=== PATIENT | female | born 1970 | race Caucasian/White ===

== ENCOUNTER 2020-02-20 12:12 | Observation (INO) ==
[2020-02-20] MEDS ORDERED: Ondansetron 4 MG/2 ML VIAL IVP PRN (19:05)
[2020-02-20] MEDS ORDERED: 0.9 % Sodium Chloride 1,000 ML IVC SCH (19:15)
[2020-02-20 19:55] LABS: Basophils % 0.3 %; Eosinophils # 0.1 K/mcL (0.0-0.6); Eosinophils % 0.8 %; Hemoglobin 13.1 g/dL (11.5-15.4); Immature Granulocytes % 0.4 % (0-4); Lymphocytes # 1.8 K/mcL (0.6-4.6); Lymphocytes % 19.2 %; Mean Corpuscular HGB Conc 32.8 g/dL (31.6-35.5); Mean Corpuscular Hemoglobin 30.9 pg (28.0-33.3); Mean Corpuscular Volume 94.3 fL (83.0-100.0); Mean Platelet Volume 9.5 fL (9.4-12.4); Monocytes # 0.4 K/mcL (0.0-1.3); Monocytes % 3.7 %; Neutrophils # 7.2 K/mcL (1.6-8.9); Platelet Count 307 K/mcL (140-400); Red Blood Count 4.24 M/mcL (3.82-4.97); Red Cell Distribution Width 13.7 % (11.5-14.5); Segmented Neutrophils % 75.6 %; White Blood Count 9.6 K/mcL (4.3-11.1)
[2020-02-20 20:09] LABS: Alanine Aminotransferase 17 Units/L (7-52); Albumin 3.9 g/dL (3.5-5.7); Albumin/Globulin Ratio 1.9 (1.1-2.2); Alkaline Phosphatase 45 Units/L (34-104); Aspartate Amino Transferase 22 Units/L (13-39); BUN/Creatinine Ratio 26 (6-26); Bilirubin,Total 0.4 mg/dL (0.3-1.0); Blood Urea Nitrogen 15 mg/dL (6-20); Carbon Dioxide 22 mEq/L (23-29); Chloride 109 mEq/L (98-107); Globulin 2.1 g/dL (2.4-3.5); Glucose 84 mg/dL (70-105); Osmolality,Calculated 286 (280-300); Sodium 138 mEq/L (136-145); eGFR For African Americans > 60 (> 60); eGFR For Non-African Americans > 60 (> 60)
[2020-02-21] MEDS: Acetaminophen IV 1,000 MG/100 ML INFUS..BTL IVPB SCH ×2 (00:34→05:17)
[2020-02-21] MEDS ORDERED: Ondansetron 4 MG/2 ML VIAL IVP ONE (06:21)
[2020-02-21] MEDS ORDERED: *HR* Promethazine 25 MG/ML VIAL IVP PRN ×2 (06:21→07:41)
[2020-02-21] MEDS ORDERED: *HR* OxyCODONE Immed Rel 5 MG TABLET PO PRN ×2 (06:21→07:41)
[2020-02-21] MEDS ORDERED: *HR* HYDROmorphone PF 0.5 MG/0.5 ML SYRINGE IVP PRN ×2 (06:21→07:41)
[2020-02-21] MEDS ORDERED: Acetaminophen IV 1,000 MG/100 ML INFUS..BTL IVPB ONE ×2 (06:22→07:41)
[2020-02-21] MEDS ORDERED: *HR* FentaNYL (PF) 100 MCG/2 ML VIAL ONE ×2 (07:11→08:29)
[2020-02-21] MEDS ORDERED: *HR* Rocuronium Bromide 50 MG/5 ML VIAL ONE (07:11)
[2020-02-21] MEDS ORDERED: Lidocaine -MPF 2% 2 ML VIAL ONE ×2 (07:11→07:13)
[2020-02-21] MEDS ORDERED: *HR* Midazolam HCl 2 MG/2 ML VIAL ONE (07:11)
[2020-02-21] MEDS ORDERED: Dexamethasone 4 MG/ML VIAL ONE (07:11)
[2020-02-21] MEDS ORDERED: *HR* Propofol 200 MG/20 ML VIAL IVP ONE (07:11)
[2020-02-21] MEDS ORDERED: Ondansetron 4 MG/2 ML VIAL ONE (07:11)
[2020-02-21] MEDS ORDERED: *HR* Labetalol 20 MG/4 ML SYRINGE IVP PRN (07:41)
[2020-02-21] MEDS ORDERED: *HR* HYDROmorphone 2 MG TABLET PO PRN (07:41)
[2020-02-21] MEDS ORDERED: Famotidine 20 MG/2 ML VIAL ONE (07:47)
[2020-02-21] MEDS ORDERED: Acetaminophen IV 1,000 MG/100 ML INFUS..BTL ONE (07:47)
[2020-02-21] MEDS ORDERED: Ketorolac 30 MG/ML VIAL ONE (08:32)
[2020-02-21] MEDS ORDERED: Neostigmine Methylsulfate 3 MG/3 ML SYRINGE ONE (08:53)
[2020-02-21] MEDS ORDERED: Ondansetron 4 MG/2 ML VIAL IVP PRN (10:49)
[2020-02-21 14:18] VITALS: BP 128/76
[2020-02-21] MEDS ORDERED: Ondansetron ODT 4 MG TAB.RAPDIS SL ONE (15:07)
[2020-02-22] MEDS ORDERED: Verapamil ER (24 HR) 120 MG TABLET.ER PO SCH (09:00)
== END 2020-02-21 15:34 | disposition home or self-care (01) ==
LOC: 3ANU
PROVIDERS: ADMIT Surgery; ATTEND Surgery

== ENCOUNTER 2020-08-08 07:25 | Inpatient (IN) ==
[2020-08-08] MEDS ORDERED: Ondansetron 4 MG/2 ML VIAL ONE (08:00)
[2020-08-08] MEDS ORDERED: Lidocaine -MPF 2% 2 ML VIAL ONE (08:00)
[2020-08-08] MEDS ORDERED: *HR* Propofol 200 MG/20 ML VIAL IVP ONE (08:00)
[2020-08-08] MEDS ORDERED: *HR* FentaNYL (PF) 100 MCG/2 ML VIAL ONE ×2 (08:00→08:04)
[2020-08-08] MEDS ORDERED: Ringers Solution, Lactated 1,000 ML IVC SCH ×2 (08:00→08:15)
[2020-08-08] MEDS ORDERED: *HR* Rocuronium Bromide 50 MG/5 ML VIAL ONE (08:00)
[2020-08-08] MEDS ORDERED: *HR* Midazolam HCl 2 MG/2 ML VIAL ONE (08:00)
[2020-08-08] MEDS ORDERED: Lidocaine HCL 4 ML Topical Solution (Laryng-O-Jet Kit Sterile Pak) TP ONE (08:00)
[2020-08-08] MEDS ORDERED: *HR* Succinylcholine 200 MG/10 ML VIAL IVP ONE (08:00)
[2020-08-08] MEDS ORDERED: *HR* OxyCODONE Immed Rel 5 MG TABLET PO PRN (08:13)
[2020-08-08] MEDS ORDERED: Ondansetron 4 MG/2 ML VIAL IVP PRN (08:13)
[2020-08-08] MEDS ORDERED: *HR* Phenylephrine 10 MG/ML VIAL ONE (08:28)
[2020-08-08] MEDS ORDERED: Clindamycin 600 MG/50 ML 600 MG/50 ML IV.SOLN IVPB ONE (08:29)
[2020-08-08] MEDS ORDERED: EPHEDrine 50 MG/ML VIAL ONE (09:11)
[2020-08-08] MEDS ORDERED: Acetaminophen IV 1,000 MG/100 ML BAG IVPB ONE ×2 (09:24→09:25)
[2020-08-08] MEDS ORDERED: Ketorolac 30 MG/ML VIAL ONE (10:14)
[2020-08-08] MEDS ORDERED: Sugammadex Sodium 200 MG/2 ML VIAL IV ONE (10:18)
[2020-08-08] MEDS ORDERED: cloNIDine HCL 0.1 MG TABLET ONE (11:05)
[2020-08-08] MEDS: *HR* HYDROmorphone PF 0.5 MG/0.5 ML SYRINGE IVP PRN ×4 (11:09→11:40)
[2020-08-08] MEDS ORDERED: Naloxone 0.4 MG/ML INJ IVP PRN (13:02)
[2020-08-08] MEDS ORDERED: *HR* HYDROcodone/Acet 5/325 mg TABLET PO PRN (13:02)
[2020-08-08] MEDS: 0.9 % Sodium Chloride 1,000 ML IVC SCH (13:17)
[2020-08-08] MEDS: Ketorolac 15 MG/ML VIAL IVP SCH ×2 (13:17→17:12)
[2020-08-08] MEDS: *HR* Heparin 5,000 UNIT/ML VIAL SQ SCH ×2 (14:55→20:20)
[2020-08-08] MEDS: Gabapentin 300 MG CAPSULE PO SCH ×2 (14:55→20:20)
[2020-08-08] MEDS: Ipratropium/Albuterol Neb 3 ML IH SCH ×4 (15:24→23:02)
[2020-08-08] MEDS: Ondansetron 4 MG/2 ML VIAL IVP PRN ×2 (15:28→21:04)
[2020-08-08] MEDS: *HR* HYDROcodone/Acet 7.5/325 mg TABLET PO PRN ×2 (18:40→23:10)
[2020-08-08] MEDS: Sennosides/Docusate Sodium TABLET PO SCH (20:21)
[2020-08-08] MEDS: Famotidine 20 MG TABLET PO SCH (20:21)
[2020-08-09] MEDS: Ketorolac 15 MG/ML VIAL IVP SCH ×4 (00:03→16:43)
[2020-08-09 01:32] LABS: % Iron Saturation 18 % (15-50); BUN/Creatinine Ratio 23 (6-26); Blood Urea Nitrogen 13 mg/dL (6-20); Calcium 8.7 mg/dL (8.6-10.3); Carbon Dioxide 20 mEq/L (23-29); Chloride 108 mEq/L (98-107); Glucose 132 mg/dL (70-105); Iron 64 mcg/dL (50-170); Magnesium 1.8 mg/dL (1.6-2.6); Osmolality,Calculated 284 (280-300); Potassium 4.2 mEq/L (3.5-5.1); Sodium 136 mEq/L (136-145); Transferrin 255 mg/dL (203-362); eGFR For African Americans > 60 (> 60); eGFR For Non-African Americans > 60 (> 60)
[2020-08-09] MEDS: 0.9 % Sodium Chloride 1,000 ML IVC SCH (02:19)
[2020-08-09] MEDS: *HR* HYDROcodone/Acet 7.5/325 mg TABLET PO PRN ×3 (04:17→20:17)
[2020-08-09] MEDS: Ipratropium/Albuterol Neb 3 ML IH SCH ×6 (04:29→23:16)
[2020-08-09 05:18] LABS: Hemoglobin 13.3 g/dL (11.5-15.4); Mean Corpuscular HGB Conc 33.3 g/dL (31.6-35.5); Mean Corpuscular Volume 90.3 fL (83.0-100.0); Platelet Count 165 K/mcL (140-400); Red Blood Count 4.43 M/mcL (3.82-4.97); Red Cell Distribution Width 13.2 % (11.5-14.5); White Blood Count 13.9 K/mcL (4.3-11.1)
[2020-08-09] MEDS: *HR* Heparin 5,000 UNIT/ML VIAL SQ SCH ×3 (06:29→20:17)
[2020-08-09] MEDS: Sennosides/Docusate Sodium TABLET PO SCH ×2 (07:51→20:17)
[2020-08-09] MEDS: Verapamil ER (24 HR) 120 MG TABLET.ER PO SCH (07:51)
[2020-08-09] MEDS: Famotidine 20 MG TABLET PO SCH ×2 (07:51→20:17)
[2020-08-09] MEDS: Gabapentin 300 MG CAPSULE PO SCH ×3 (07:51→20:17)
[2020-08-09] MEDS: Ondansetron 4 MG/2 ML VIAL IVP PRN (11:27)
[2020-08-10] MEDS: Ketorolac 15 MG/ML VIAL IVP SCH ×2 (00:06→06:12)
[2020-08-10] MEDS: Ipratropium/Albuterol Neb 3 ML IH SCH ×2 (03:56→07:38)
[2020-08-10] MEDS: *HR* HYDROcodone/Acet 7.5/325 mg TABLET PO PRN (04:13)
[2020-08-10] MEDS: *HR* Heparin 5,000 UNIT/ML VIAL SQ SCH (06:12)
[2020-08-10] MEDS: Famotidine 20 MG TABLET PO SCH (07:28)
[2020-08-10] MEDS: Sennosides/Docusate Sodium TABLET PO SCH (07:28)
[2020-08-10] MEDS: Gabapentin 300 MG CAPSULE PO SCH (07:28)
[2020-08-10] MEDS: Verapamil ER (24 HR) 120 MG TABLET.ER PO SCH (07:28)
[2020-08-10 07:51] VITALS: BP 115/76
== END 2020-08-10 10:33 | disposition home or self-care (01) ==
LOC: SAMDAY 07:25 → 2NNU 13:01
PROVIDERS: ADMIT Thoracic Surgery (Cardiothoracic Vascular Surgery); ATTEND Thoracic Surgery (Cardiothoracic Vascular Surgery)

== ENCOUNTER 2021-01-15 04:49 | Observation (INO) ==
[2021-01-15 05:17] LABS: Basophils # 0.1 K/mcL (0.0-0.2); Basophils % 0.6 %; Eosinophils # 0.3 K/mcL (0.0-0.6); Eosinophils % 3.1 %; Hematocrit 44.4 % (35.3-44.9); Hemoglobin 14.4 g/dL (11.5-15.4); Immature Granulocytes % 0.4 % (0-4); Lymphocytes # 3.6 K/mcL (0.6-4.6); Lymphocytes % 44.3 %; Mean Corpuscular HGB Conc 32.4 g/dL (31.6-35.5); Mean Corpuscular Hemoglobin 29.4 pg (28.0-33.3); Mean Corpuscular Volume 90.8 fL (83.0-100.0); Mean Platelet Volume 9.2 fL (9.4-12.4); Monocytes # 0.6 K/mcL (0.0-1.3); Monocytes % 6.8 %; Neutrophils # 3.6 K/mcL (1.6-8.9); Platelet Count 374 K/mcL (140-400); Red Blood Count 4.89 M/mcL (3.82-4.97); Red Cell Distribution Width 13.4 % (11.5-14.5); Segmented Neutrophils % 44.8 %; White Blood Count 8.1 K/mcL (4.3-11.1)
[2021-01-15] MEDS ORDERED: Aspirin 81 MG TAB.CHEW PO ONE (05:19)
[2021-01-15] MEDS: Nitroglycerin 0.4 MG TAB.SUBL SL PRN ×2 (05:31→05:43)
[2021-01-15 05:40] LABS: INR 0.9; Prothrombin Time 10.6 Seconds (9.4-12.1)
[2021-01-15 05:43] LABS: Activated Partial Thrombo Time 30.2 Seconds (26.0-36.0)
[2021-01-15 05:47] LABS: BUN/Creatinine Ratio 22 (6-26); Blood Urea Nitrogen 19 mg/dL (6-20); Calcium 9.7 mg/dL (8.6-10.3); Carbon Dioxide 24 mEq/L (23-29); Chloride 108 mEq/L (98-107); Glucose 106 mg/dL (70-105); Lipase 60 Units/L (11-82); Osmolality,Calculated 297 (280-300); Sodium 142 mEq/L (136-145); Troponin I < 0.03 ng/mL (< 0.04); eGFR For African Americans > 60 (> 60); eGFR For Non-African Americans > 60 (> 60)
[2021-01-15] MEDS ORDERED: Ondansetron 4 MG/2 ML VIAL IVP PRN (07:25)
[2021-01-15] MEDS ORDERED: Naloxone 0.4 MG/ML INJ IVP PRN (07:25)
[2021-01-15] MEDS ORDERED: *HR* HYDROcodone/Acet 5/325 mg TABLET PO PRN (07:25)
[2021-01-15] MEDS ORDERED: Regadenoson 0.4 MG/5 ML SYRINGE IVP ONE (08:18)
[2021-01-15] MEDS ORDERED: Gabapentin 400 MG CAPSULE PO SCH (09:00)
[2021-01-15] MEDS ORDERED: Verapamil ER (24 HR) 120 MG TABLET.ER PO SCH (09:00)
[2021-01-15 10:54] VITALS: BP 111/82
[2021-01-15] MEDS ORDERED: *HR* Heparin 5,000 UNIT/ML VIAL SQ SCH (18:00)
[2021-01-15] MEDS ORDERED: Albuterol 2.5 MG/3 ML NEBULIZER IH SCH (21:00)
[2021-01-16] MEDS ORDERED: Aspirin Enteric Coated 81 MG Tablet PO SCH (09:00)
[2021-01-16] MEDS ORDERED: Cholestyramine 4 GM POWD.PACK PO SCH (09:00)
== END 2021-01-15 15:19 | disposition home or self-care (01) ==
LOC: CDU 04:49 → EMEROOARM 04:49 → CDU 06:56
PROVIDERS: ADMIT Family Medicine; ATTEND Family Medicine